=== PATIENT | female | born 1970 | race African-American/Black ===

== ENCOUNTER → 2018-06-14 | Day surgery (SDC) | payer MEDICARE ==
[2018-06-11 09:49] LABS: BASOPHILS # (AUTO) 0.1 (0.0-0.1); BASOPHILS % 0.7 % (0.0-1.0); EOSINOPHILS # (AUTO) 0.4 (0.0-0.4); EOSINOPHILS % 4.9 % (0.0-6.0); HEMATOCRIT 43.7 % (34.2-44.1); HEMOGLOBIN 13.7 g/dL (12.0-16.0); LYMPHOCYTES # (AUTO) 2.6 (1.0-3.2); LYMPHOCYTES % 36.3 % (18.0-39.1); MEAN CORPUSCULAR HEMOGLOBIN 28.7 pg (28-32); MEAN CORPUSCULAR HGB CONC 31.4 g/dL (31-35); MEAN CORPUSCULAR VOLUME 91.4 fL (81-99); MONOCYTES # (AUTO) 0.5 (0.2-0.8); MONOCYTES % 6.5 % (4.4-11.3); NEUTROPHILS # (AUTO) 3.7 (2.1-6.9); NEUTROPHILS % 51.5 % (38.7-80.0); PLATELET COUNT 311 x10e3/uL (140-360); RED BLOOD COUNT 4.78 x10e6/uL (3.6-5.1); RED CELL DISTRIBUTION WIDTH 12.5 % (11.7-14.4)
[2018-06-11 10:02] LABS: BLOOD UREA NITROGEN 11 mg/dL (7-26); BUN/CREATININE RATIO 14 (6-25); CALCIUM 9.9 mg/dL (8.4-10.2); CARBON DIOXIDE 26 mmol/L (22-29); CHLORIDE 98 mmol/L (98-107); CREATININE, SERUM 0.79 mg/dL (0.57-1.11); EST GLOMERULAR FILTRATION RATE > 60 ML/MIN (60-); GLUCOSE 95 mg/dL (74-118); SODIUM 133 mmol/L (136-145)
[~2018-06-14] MED LIST: BACLOFEN10 MG PO; BENTYL10 MG PO; BENTYL20 MG PO; BUPIVACAINE 0.25%/EPI 30ML SDV INJ ONE; BUSPAR PO; BUTALB-ACETAMI1 EACH PO; CLONAZEPAM1 MG PO; COLACE100 MG PO; DEXAMETHASONE SOD PHOS INJ 4 MG/ML VIAL ONE; DOXYCYCLINE HY100 MG PO; DULCOLAX10 MG PO; EPHEDRINE SULFATE INJ 50 MG/10 ML SYR ONE; FENTANYL CITRATE/PF 100MCG/2 ML INJ ONE; FLUCONAZOLE100 MG PO; GABAPENTIN300 MG PO; HALDOL PO; KLONOPIN1 MG PO; LAMICTAL150 MG PO; LAMOTRIGINE100 MG PO; LIDOCAINE HCL 2% LOCAL INJ 5 ML SDV VIAL INJ ONE; LINZESS PO; LIPITOR40 MG PO; METOCLOPRAMIDE HCL 10 MG/2ML VIAL ONE; MIDAZOLAM HCL 2 MG/2 ML VIAL ONE; MIRALAX17 GM PO; OLANZAPINE5 MG PO; ONDANSETRON HCL INJ 2MG/ML 2ML 2 MG/ML VIAL ONE; PANTOPRAZOLE SO40 MG PO; PROPOFOL IV EMULSION 10 MG/ML 20 ML VIAL ONE; PROTONIX40 MG/ML PO; PROZAC20 MG PO; REGLAN10 MG PO; SEVOFLURANE INHAL SOLN 250 ML PEN BTL ONE; SIMVASTATIN40 MG PO; TORSEMIDE10 MG PO; TRAZODONE HCL50 MG PO
--- OUTSIDE RECORDS SUMMARY | 2018-06-14 09:13 | XMS REPORT | Summary of Care ---
Author Organization Unknown Address Unknown Phone Unavailable Encounter Dates Location Diagnoses Discharge Providers Disposition 05/06/2013 [facility] Q - 06/04/2013 Reason for Visit CERVICAL SPONDYLOSIS Problem List No data available for this section Allergies, Adverse Reactions, Alerts Status Substance Reaction Severity Active penicillin Medications No data available for this section Medications Administered During Your Visit No data available for this section Immunizations No data available for this section
--- OUTSIDE RECORDS SUMMARY | 2018-06-14 09:13 | XMS REPORT ---
[facility] Address Unknown Phone Unavailable Care Team Providers Care Styrene Dehydration Reactor Operator Name Role Phone Unavailable Unavailable Payers Payer Name Policy Type Policy Number Effective Date Expiration Date Problems This patient has no known problems. Allergies, Adverse Reactions, Alerts Allergy Name Allergy Type Status Severity Reaction(s) Onset Date Inactive Date Treating Clinician Comments Penicillins DA Active U 2017-12-24 00:00:00 ziprasidone HCl DA Active SV 2010-09-16 00:00:00 ziprasidone mesylate DA Active SV 2010-09-16 00:00:00 Penicillins DA Active U 2010-09-15 00:00:00 Medications This patient has no known medications.
--- OUTSIDE RECORDS SUMMARY | 2018-06-14 09:13 | XMS REPORT | Clinical Summary ---
Author Author [facility] Address Unknown Phone Unavailable Care Team Providers Care Scrap Hoist Operator Name Role Phone Nithin Romo MD PCP Allergies Comments Active Allergy Reactions Severity Noted Date PSYCHOTIC Ziprasidone Hcl 02/01/2017 Penicillins Hives, 12/06/2016 Swelling Medications End Date Status Medication Sig Dispensed Refills Start Date Active dicyclomine (BENTYL) 20 Take 20 mg by 0 mg tablet mouth 4 (four) times a day. Active haloperidol (HALDOL) 10 Take 5 mg by 0 MG tablet mouth 4 (four) times a day. Active atorvastatin (LIPITOR) 40 Take 40 mg by 0 MG tablet mouth daily. Active linaclotide (LINZESS) 290 Take 290 mcg 0 mcg capsule by mouth daily before breakfast. Active clonAZEPAM (KlonoPIN) 1 Take 1 mg by 0 MG tablet mouth 2 (two) times a day as needed for seizures. Active lamoTRIgine (LaMICtal) Take 150 mg 0 150 MG tablet by mouth daily. Active pantoprazole (PROTONIX) Take 40 mg by 0 40 MG EC tablet mouth daily. Active FLUoxetine (PROzac) 20 MG Take 20 mg by 0 capsule mouth daily. Active promethazine (PHENERGAN) Take 25 mg by 0 25 MG tablet mouth every 6 (six) hours as needed for nausea or vomiting. Active multivitamin (THERAGRAN) Take 1 tablet 0 tablet by mouth daily. Active busPIRone (BUSPAR) 5 MG Take 5 mg by 0 tablet mouth 3 (three) times a day. Active torsemide (DEMADEX) 10 MG Take 10 mg by 0 tablet mouth daily. Active albuterol (PROAIR HFA) 90 Inhale 2 0 mcg/actuation inhaler puffs every 6 (six) hours as needed for wheezing. Active azelastine (ASTELIN) 137 1 spray into 0 mcg (0.1 %) nasal spray each nostril 2 (two) times a day. Use in each nostril as directed Active levocetirizine (XYZAL) 5 Take 5 mg by 0 01/03/201 MG tablet mouth every 7 evening. Active Problems Not on file Family History Medical History Relation Name Comments Diabetes Father Hypertension Father Arthritis Mother Relation Name Status Comments Father Mother Social History Date Tobacco Use Types Packs/Day Years Used Never Smoker Smokeless Tobacco: Never Used Alcohol Use Drinks/Week oz/Week Comments No Sex Assigned at Date Recorded Not on file Industry Job Start Date Occupation Not on file Not on file Not on file Travel End Travel History Travel Start No recent travel history available. Last Filed Vital Signs Not on file Plan of Treatment Health Maintenance Due Date Last Done Comments CERVICAL CANCER SCREENING 05/22/1992 INFLUENZA VACCINE 10/17/2017 Implants Device Identifier Shelf Expiration Date Model / Serial / Lot Implanted Type Area Manufactur er 07/19/2018 [id number] 35 / [id number] / [id number] Hde#[id number] Lead Enterra Neurosurgi N/A: N/A [employer] Neurostimulator Gastric - varun [id number] - [id number] Implants Implanted: Qty: 1 on 02/07/2017 by Chaitanya Willson MD 07/28/2018 [id number] 35 / [id number] / [id number] Hde#[id number] Lead Enterra Neurosurgi N/A: N/A [employer] Neurostimulator Gastric - varun [id number] - [id number] Implants Implanted: Qty: 1 on 02/07/2017 by Chaitanya Willson MD 01/30/2018 [id number] / [id number] / [id number] Hde# [id number] Neurostimulator Neurosurgi N/A: N/A [employer] Enterra Ii Therapy System - varun NEUROMODUL [id number] - [id number] Implants ATION Implanted: Qty: 1 on 02/07/2017 by Chaitanya Willson MD Results Not on fileafter 06/13/2017 Insurance Payer Benefit Subscriber ID Type Phone Address Plan / Group [employer] TEX[employer] xxxxxxxxx O [facility] Advance Directives Patient has advance care planning documents on file. For more information, frankie yancey contact: Osmany Ross [address] [place] [address]
--- OUTSIDE RECORDS SUMMARY | 2018-06-14 09:13 | XMS REPORT | Summary of Care ---
Author Organization Unknown Address Unknown Phone Unavailable Encounter [facility]) [id number] Date(s): 12/29/13 - 12/29/13 [facility] [id number] Discharge Diagnosis: Acute chest wall pain Discharge Disposition: Home Physician Attending: Shashank Savage MD Reason for Visit CHEST PAIN Vital Signs 1 2 3 Most recent to oldest [Reference Range]: 162.56 cm (12/29/13 2:56 PM) Height 98.2 DegF (12/29/13 10:06 PM) 98.7 DegF (12/29/13 4:30 PM) 98.4 DegF (12/29/13 3:31 PM) Temperature Oral [96.4-99.1 DegF] 94 mmHg (12/29/13 10:06 PM) 113 mmHg (12/29/13 9:00 PM) 113 mmHg (12/29/13 7:00 PM) Systolic Blood Pressure [90-140 mmHg] 66 mmHg (12/29/13 10:06 PM) 80 mmHg (12/29/13 9:00 PM) 80 mmHg (12/29/13 7:00 PM) Diastolic Blood Pressure [60-90 mmHg] 24 BRMIN *HI* (12/29/13 10:06 PM) 12 BRMIN *LOW* (12/29/13 9:00 PM) 14 BRMIN (12/29/13 7:00 PM) Respiratory Rate [14-20 BRMIN] 63 bpm (12/29/13 10:06 PM) 63 bpm (12/29/13 9:00 PM) 62 bpm (12/29/13 7:00 PM) Peripheral Pulse Rate [60-100 bpm] 88.182 kg (12/29/13 2:56 PM) Weight 33.37 m2 (12/29/13 2:56 PM) Body Mass Index Problem List Condition Effective Dates Status Health Status Informant Anxiety(Confirmed) Resolved Depression(Confirmed Resolved ) Allergies, Adverse Reactions, Alerts Substance Reaction Severity Status penicillin Active Medications Flexeril 10 mg, 1 tab, Route: PO, Drug form: TAB, ONCE, Dosing Weight 88.182, kg, Priorit y: STAT, Start date: 12/29/13 20:21:00, Stop date: 12/29/13 20:21:00 Notes: (Same As: Flexeril) Start Date: 12/29/13 Stop Date: 12/29/13 Status: Completed ketorolac 30 mg, Route: IVP, Drug form: INJ, ONCE, Dosing Weight 88.182, kg, Priority: STA T, Start date: 12/29/13 18:25:00, Stop date: 12/29/13 18:25:00 Start Date: 12/29/13 Stop Date: 12/29/13 Status: Completed Valium 5 mg, Route: PO, ONCE, Dosing Weight 88.182, kg, Priority: STAT, Start date: 21:16:00, Stop date: 12/29/13 21:16:00 Start Date: 12/29/13 Stop Date: 12/29/13 Status: Completed Valium 5 mg oral tablet 5 mg, PO, Q8-12H, Anxiety / dizziness, # 20 tab, 0 Refill(s) Start Date: 12/29/13 Stop Date: 01/05/14 Status: Ordered Results ELECTROLYTES Most recent to 1 2 oldest [Reference Range]: Sodium Lvl [135-145 136 mEq/L mEq/L] (12/29/13 3:32 PM) Potassium Lvl 4.0 mEq/L [3.5-5.1 mEq/L] (12/29/13 3:32 PM) Chloride Lvl [95-109 106 mEq/L mEq/L] (12/29/13 3:32 PM) CO2 [24-32 mEq/L] 20 mEq/L *LOW* (12/29/13 3:32 PM) AGAP [10.0-20.0 14.0 mEq/L mEq/L] (12/29/13 3:32 PM) CHEM PANEL Most recent to 1 2 oldest [Reference Range]: Creatinine Lvl 0.8 mg/dL [0.5-1.4 mg/dL] (12/29/13 3:32 PM) eGFR 105 mL/min/1.73m2 1 *NA* (12/29/13 3:32 PM) BUN [7-22 mg/dL] 17 mg/dL (12/29/13 3:32 PM) B/C Ratio [6-25] 21 (12/29/13 3:32 PM) Glucose Lvl [70-99 91 mg/dL 2 mg/dL] (12/29/13 3:32 PM) Total Protein 7.8 g/dL [6.4-8.4 g/dL] (12/29/13 3:32 PM) Albumin Lvl [3.5-5.0 3.5 g/dL g/dL] (12/29/13 3:32 PM) Globulin [2.0-4.0 4.3 g/dL g/dL] *HI* (12/29/13 3:32 PM) A/G Ratio [0.7-1.6] 0.8 (12/29/13 3:32 PM) Calcium Lvl 8.5 mg/dL [8.5-10.5 mg/dL] (12/29/13 3:32 PM) ALT [0-65 unit/L] 18 unit/L (12/29/13 3:32 PM) AST [0-37 unit/L] 17 unit/L (12/29/13 3:32 PM) Alk Phos [39-136 61 unit/L unit/L] (12/29/13 3:32 PM) Bili Total [0.2-1.3 0.2 mg/dL mg/dL] (12/29/13 3:32 PM) 1Result Comment: The eGFR is calculated using the CKD-EPI formula. In most young, healthy individuals the eGFR will be >90 mL/min/1.73m2. The eGFR declines with age. An eGFR of 60-89 may be normal in some populations, particularly the elderly, for whom the CKD-EPI formula has not been extensively validated. Use of the eGFR is not recommended in the following populations: Individuals with unstable creatinine concentrations, including patients and those with serious co-morbid conditions. Patients with extremes in muscle mass or diet. The data above are obtained from the National Kidney Disease Education Program ( NKDEP) which additionally recommends that when the eGFR is used in patients with extremes of body mass index for purposes of drug dosing, the eGFR should be mul tiplied by the estimated BMI. 2Interpretive Data: Adult reference range values reflect the clinical guidelines of the [employer]. CARDIAC ENZYMES Most recent to 1 2 oldest [Reference Range]: Total CK [12-191 65 unit/L 85 unit/L unit/L] (12/29/13 7:09 PM) (12/29/13 3:32 PM) CK MB [0.5-3.6 0.7 ng/mL ng/mL] (12/29/13 3:32 PM) CK MB Index 0.8 [0.0-2.5] (12/29/13 3:32 PM) Troponin-I <0.02 ng/mL <0.02 ng/mL [0.00-0.40 ng/mL] (12/29/13 7:09 PM) (12/29/13 3:32 PM) URINE CHEM Most recent to 1 2 oldest [Reference Range]: U Preg [Negative] Negative (12/29/13 6:02 PM) HEMATOLOGY Most recent to 1 2 oldest [Reference Range]: WBC [3.7-10.4 K/CMM] 11.5 K/CMM *HI* (12/29/13 3:32 PM) RBC [4.20-5.40 4.52 M/CMM M/CMM] (12/29/13 3:32 PM) Hgb [12.0-16.0 g/dL] 12.9 g/dL (12/29/13 3:32 PM) Hct [36.0-48.0 %] 40.1 % (12/29/13 3:32 PM) MCV [80.0-98.0 fL] 88.5 fL (12/29/13 3:32 PM) MCH [27.0-31.0 pg] 28.6 pg (12/29/13 3:32 PM) MCHC [32.0-36.0 32.3 g/dL g/dL] (12/29/13 3:32 PM) RDW [11.5-14.5 %] 13.2 % (12/29/13 3:32 PM) Platelet [133-450 301 K/CMM K/CMM] (12/29/13 3:32 PM) MPV [7.4-10.4 fL] 8.7 fL (12/29/13 3:32 PM) Segs [45.0-75.0 %] 39.3 % *LOW* (12/29/13 3:32 PM) Lymphocytes 50.0 % [20.0-40.0 %] *HI* (12/29/13 3:32 PM) Monocytes [2.0-12.0 5.6 % %] (12/29/13 3:32 PM) Eosinophils [0.0-4.0 3.3 % %] (12/29/13 3:32 PM) Basophils [0.0-1.0 1.8 % %] *HI* (12/29/13 3:32 PM) Segs-Bands # 4.5 K/CMM [1.5-8.1 K/CMM] (12/29/13 3:32 PM) Lymphocytes # 5.8 K/CMM [1.0-5.5 K/CMM] *HI* (12/29/13 3:32 PM) Monocytes # [0.0-0.8 0.6 K/CMM K/CMM] (12/29/13 3:32 PM) Eosinophils # 0.4 K/CMM [0.0-0.5 K/CMM] (12/29/13 3:32 PM) Basophils # [0.0-0.2 0.2 K/CMM K/CMM] (12/29/13 3:32 PM) Medications Administered During Your Visit No data available for this section Immunizations No data available for this section Procedures Procedure Type Body Site Date of Procedure Related Diagnosis Knee joint operation Social History Social History Type Response Smoking Status Never smoker, Exposure to Tobacco Smoke None, Cigarette Smoking Last 365 Days No, Reg Smoking Cessation Counseling No
--- OUTSIDE RECORDS SUMMARY | 2018-06-14 09:13 | XMS REPORT | Continuity of Care Document ---
Author Author Armin milena [facility] Interface Address Unknown Phone Unavailable Problems Problem Status Onset Date Classification Date Reported Comments Source Discharge Diagnosis: Female pelvic inflammatory disease, unspecified 12/28/2014 12/31/2014 [facility] LOWER ABD PAIN Active 12/27/2014 [facility] Discharge Diagnosis: Acute chest wall pain 12/29/2013 01/01/2014 [facility] CHEST PAIN Active 12/29/2013 [facility] Anxiety Resolved Problem 12/31/2014 [facility] Depression Resolved Problem 12/31/2014 [facility] CERVICAL SPONDYLOSIS Active [facility] Medications Medication Details Route Status Patient Instructions Ordering Provider Order Date Source baclofen 10 mg oral tablet 10 mg=1 tab, PO, TID, PRN Spasms, # 90 tab, 0 Refill(s) Active 12/28/2014 [facility] naproxen 500 mg oral enteric coated delayed-release tablet 500 mg=1 tab, PO, BID, PRN Pain, # 30 tab, 0 Refill(s) Active 12/28/2014 [facility] doxycycline hyclate 100 mg oral tablet 100 mg=1 tab, PO, Q12H, X 10 day, # 20 tab, 0 Refill(s) Active 12/28/2014 [facility] Flagyl 2 gm, Route: PO, ONCE, Dosing Weight 94.091, kg, Priority: STAT, Start date: 12/28/14 5:07:00, Stop date: 12/28/14 5:07:00 Inactive 12/28/2014 [facility] Azithromycin 1,000 mg, Route: PO, Drug form: PCKT, ONCE, Dosing Weight 94.091, kg, Start date: 12/28/14 5:07:00, Stop date: 12/28/14 5:07:00 Inactive 12/28/2014 [facility] Ceftriaxone 250 mg, Route: IM, Drug form: PDR/INJ, ONCE, Dosing Weight 94.091, kg, Priority: STAT, Start date: 12/28/14 5:07:00, Stop date: 12/28/14 5:07:00 Inactive 12/28/2014 [facility] Ketorolac 30 mg, Route: IVP, Drug form: INJ, ONCE, Dosing Weight 94.091, kg, Priority: STAT, Start date: 12/28/14 3:51:00, Stop date: 12/28/14 3:51:00 Inactive 12/28/2014 [facility] Acetaminophen 325 MG / Hydrocodone Bitartrate 5 MG Oral Tablet [[place] 5/325] 2 tab, Route: PO, Drug Form: TAB, Dosing Weight 94.091, kg, ONCE, STAT, Start date: 12/28/14 3:51:00, Stop date: 12/28/14 3:51:00 Inactive 12/28/2014 [facility] Diazepam 5 MG Oral Tablet [Valium] 5 mg, PO, Q8-12H, Anxiety / dizziness, # 20 tab, 0 Refill(s) Active 12/30/2013 [facility] Valium 5 mg, Route: PO, ONCE, Dosing Weight 88.182, kg, Priority: STAT, Start date: 12/29/13 21:16:00, Stop date: 12/29/13 21:16:00 Inactive 12/30/2013 [facility] Flexeril 10 mg, 1 tab, Route: PO, Drug form: TAB, ONCE, Dosing Weight 88.182, kg, Priority: STAT, Start date: 12/29/13 20:21:00, Stop date: 12/29/13 20:21:00Notes: (Same As: Flexeril) Inactive 12/30/2013 [facility] Ketorolac 30 mg, Route: IVP, Drug form: INJ, ONCE, Dosing Weight 88.182, kg, Priority: STAT, Start date: 12/29/13 18:25:00, Stop date: 12/29/13 18:25:00 Inactive 12/29/2013 [facility] Allergies, Adverse Reactions, Alerts Substance Category Reaction Severity Reaction type Status Date Reported Comments Source penicillin Assertion Drug allergy Active [facility] Immunizations Immunization Date Given Site Status Last Updated Comments Source Results Order Name Results Value Reference Range Date Interpretation Comments Source MOLECULAR DIAGNOSTIC Source APTIMA Endocervix *NA* (12/28/14 5:45 AM) 12/28/2014 [facility] MOLECULAR DIAGNOSTIC N gonorrhea by Amp Det (APTIMA) Negative *NA* (12/28/14 5:45 AM) Negative 12/28/2014 [facility] MOLECULAR DIAGNOSTIC Source APTIMA Endocervix *NA* (12/28/14 5:45 AM) 12/28/2014 [facility] MOLECULAR DIAGNOSTIC C trachomatis by Amp Det (APTIMA) Negative *NA* (12/28/14 5:45 AM) Negative 12/28/2014 [facility] CHEM PANEL Globulin 4.1 g/dL 2.0 - 4.0 12/28/2014 [facility] CHEM PANEL B/C Ratio 16 6 - 25 12/28/2014 [facility] CHEM PANEL AGAP 7.9 meq/L 10.0 - 20.0 12/28/2014 [facility] CHEM PANEL A/G Ratio 0.9 0.7 - 1.6 12/28/2014 [facility] CHEM PANEL Chloride Lvl 104 meq/L 95 - 109 12/28/2014 [facility] CHEM PANEL Calcium Lvl 8.5 mg/dL 8.5 - 10.5 12/28/2014 [facility] CHEM PANEL Potassium Lvl 3.9 meq/L 3.5 - 5.1 12/28/2014 [facility] CHEM PANEL eGFR 80 mL/min/1.73m2 12/28/2014 Result Comment: The eGFR is calculated using the [...] from the National Kidney Disease Education Program (NKDEP) which additionally recommends that when the eGFR is used in patients with extremes of body mass index for purposes of drug dosing, the eGFR should be multiplied by the estimated BMI. [facility] CHEM PANEL Sodium Lvl 135 meq/L 135 - 145 12/28/2014 [facility] CHEM PANEL Creatinine Lvl 1.0 mg/dL 0.5 - 1.4 12/28/2014 [facility] CHEM PANEL Glucose Lvl 102 mg/dL 70 - 99 12/28/2014 [facility] CHEM PANEL Bili Total 0.3 mg/dL 0.2 - 1.3 12/28/2014 [facility] CHEM PANEL Alk Phos 61 unit/L 39 - 136 12/28/2014 [facility] CHEM PANEL Albumin Lvl 3.5 g/dL 3.5 - 5.0 12/28/2014 [facility] CHEM PANEL Total Protein 7.6 g/dL 6.4 - 8.4 12/28/2014 [facility] CHEM PANEL CO2 27 meq/L 24 - 32 12/28/2014 [facility] CHEM PANEL BUN 16 mg/dL 7 - 22 12/28/2014 [facility] CHEM PANEL AST 18 unit/L 0 - 37 12/28/2014 [facility] CHEM PANEL ALT 28 unit/L 0 - 65 12/28/2014 [facility] HEMATOLOGY RBC 4.78 M/CMM 4.20 - 5.40 12/28/2014 [facility] HEMATOLOGY MCHC 32.0 g/dL 32.0 - 36.0 12/28/2014 [facility] HEMATOLOGY Hct 41.3 % 36.0 - 48.0 12/28/2014 [facility] MCH 27.7 pg 27.0 - 31.0 12/28/2014 [facility] HEMATOLOGY RDW 13.0 % 11.5 - 14.5 12/28/2014 [facility] HEMATOLOGY MCV 86.5 fL 80.0 - 98.0 12/28/2014 [facility] HEMATOLOGY Platelet 266 K/CMM 133 - 450 12/28/2014 [facility] HEMATOLOGY WBC 7.7 K/CMM 3.7 - 10.4 12/28/2014 [facility] HEMATOLOGY Hgb 13.2 g/dL 12.0 - 16.0 12/28/2014 [facility] HEMATOLOGY MPV 8.3 fL 7.4 - 10.4 12/28/2014 [facility] HEMATOLOGY Basophils # 0.1 K/CMM 0.0 - 0.2 12/28/2014 [facility] HEMATOLOGY Lymphocytes # 3.1 K/CMM 1.0 - 5.5 12/28/2014 [facility] HEMATOLOGY Segs-Bands # 3.8 K/CMM 1.5 - 8.1 12/28/2014 [facility] HEMATOLOGY Eosinophils # 0.3 K/CMM 0.0 - 0.5 12/28/2014 [facility] HEMATOLOGY Monocytes # 0.5 K/CMM 0.0 - 0.8 12/28/2014 [facility] HEMATOLOGY Eosinophils 3.3 % 0.0 - 4.0 12/28/2014 [facility] HEMATOLOGY Basophils 1.5 % 0.0 - 1.0 12/28/2014 [facility] HEMATOLOGY Monocytes 6.1 % 2.0 - 12.0 12/28/2014 [facility] HEMATOLOGY Segs 49.0 % 45.0 - 75.0 12/28/2014 [facility] HEMATOLOGY Lymphocytes 40.1 % 20.0 - 40.0 12/28/2014 [facility] URINE AND STOOL UA Color Ltyellow 12/28/2014 [facility] URINE AND STOOL UA Urobilinogen <=1.0 mg/dL 0.1 - 1.0 12/28/2014 [facility] URINE AND STOOL UA Turbidity Marked *ABN* (12/28/14 2:06 AM) Clear 12/28/2014 [facility] URINE AND STOOL UA pH 5.0 5.0 - 8.0 12/28/2014 [facility] URINE AND STOOL UA Spec Grav 1.015 <=1.030 12/28/2014 [facility] URINE AND STOOL UA Blood Negative (12/28/14 2:06 AM) Negative 12/28/2014 [facility] URINE AND STOOL UA Nitrite Negative (12/28/14 2:06 AM) Negative 12/28/2014 [facility] URINE AND STOOL UA Bili Negative *NA* (12/28/14 2:06 AM) Negative 12/28/2014 [facility] URINE AND STOOL UA Glucose Negative mg/dL Negative mg/dL 12/28/2014 [facility] URINE AND STOOL UA Ketones Negative mg/dL Negative mg/dL 12/28/2014 [facility] URINE AND STOOL UA Protein Negative mg/dL Negative mg/dL 12/28/2014 [facility] URINE AND STOOL UA Bacteria Moderate /HPF None Seen /HPF 12/28/2014 [facility] URINE AND STOOL UA RBC 3 /HPF 0 - 2 12/28/2014 [facility] URINE AND STOOL UA Leuk Est Negative (12/28/14 2:06 AM) Negative 12/28/2014 [facility] URINE AND STOOL UA WBC 10 /HPF 0 - 5 12/28/2014 [facility] URINE AND STOOL UA Sq Epi Occasional /LPF Few /LPF 12/28/2014 [facility] URINE CHEM U Preg Negative (12/28/14 2:06 AM) Negative 12/28/2014 [facility] CARDIAC ENZYMES Total CK 65 unit/L 12 - 191 12/30/2013 [facility] CARDIAC ENZYMES Troponin-I null 0.00 - 0.40 12/30/2013 [facility] URINE CHEM U Preg Negative (12/29/13 6:02 PM) Negative 12/29/2013 [facility] CARDIAC ENZYMES Troponin-I null 0.00 - 0.40 12/29/2013 [facility] CARDIAC ENZYMES CK MB 0.7 ng/mL 0.5 - 3.6 12/29/2013 [facility] CARDIAC ENZYMES CK MB Index 0.8 0.0 - 2.5 12/29/2013 [facility] CARDIAC ENZYMES Total CK 85 unit/L 12 - 191 12/29/2013 [facility] CHEM PANEL Globulin 4.3 g/dL 2.0 - 4.0 12/29/2013 [facility] CHEM PANEL B/C Ratio 21 6 - 25 12/29/2013 [facility] CHEM PANEL AGAP 14.0 meq/L 10.0 - 20.0 12/29/2013 [facility] CHEM PANEL A/G Ratio 0.8 0.7 - 1.6 12/29/2013 [facility] CHEM PANEL eGFR 105 mL/min/1.73m2 12/29/2013 1Result Comment: The eGFR is calculated using [...] from the National Kidney Disease Education Program (NKDEP) which additionally recommends that when the eGFR is used in patients with extremes of body mass index for purposes of drug dosing, the eGFR should be multiplied by the estimated BMI. [facility] CHEM PANEL Potassium Lvl 4.0 meq/L 3.5 - 5.1 12/29/2013 [facility] CHEM PANEL Chloride Lvl 106 meq/L 95 - 109 12/29/2013 [facility] CHEM PANEL BUN 17 mg/dL 7 - 22 12/29/2013 [facility] CHEM PANEL Glucose Lvl 91 mg/dL 70 - 99 12/29/2013 2Interpretive Data: Adult reference range values reflect the clinical guidelines of the [place] [employer]. [facility] CHEM PANEL Total Protein 7.8 g/dL 6.4 - 8.4 12/29/2013 [facility] CHEM PANEL CO2 20 meq/L 24 - 32 12/29/2013 [facility] CHEM PANEL Sodium Lvl 136 meq/L 135 - 145 12/29/2013 [facility] CHEM PANEL Creatinine Lvl 0.8 mg/dL 0.5 - 1.4 12/29/2013 [facility] CHEM PANEL Calcium Lvl 8.5 mg/dL 8.5 - 10.5 12/29/2013 [facility] CHEM PANEL Bili Total 0.2 mg/dL 0.2 - 1.3 12/29/2013 [facility] CHEM PANEL Alk Phos 61 unit/L 39 - 136 12/29/2013 [facility] CHEM PANEL AST 17 unit/L 0 - 37 12/29/2013 [facility] CHEM PANEL Albumin Lvl 3.5 g/dL 3.5 - 5.0 12/29/2013 [facility] CHEM PANEL ALT 18 unit/L 0 - 65 12/29/2013 [facility] HEMATOLOGY Basophils 1.8 % 0.0 - 1.0 12/29/2013 [facility] HEMATOLOGY Eosinophils 3.3 % 0.0 - 4.0 12/29/2013 [facility] HEMATOLOGY Segs-Bands # 4.5 K/CMM 1.5 - 8.1 12/29/2013 [facility] HEMATOLOGY Lymphocytes # 5.8 K/CMM 1.0 - 5.5 12/29/2013 [facility] HEMATOLOGY Basophils # 0.2 K/CMM 0.0 - 0.2 12/29/2013 [facility] HEMATOLOGY Monocytes # 0.6 K/CMM 0.0 - 0.8 12/29/2013 [facility] HEMATOLOGY Eosinophils # 0.4 K/CMM 0.0 - 0.5 12/29/2013 [facility] HEMATOLOGY Segs 39.3 % 45.0 - 75.0 12/29/2013 [facility] HEMATOLOGY Monocytes 5.6 % 2.0 - 12.0 12/29/2013 [facility] HEMATOLOGY Lymphocytes 50.0 % 20.0 - 40.0 12/29/2013 [facility] HEMATOLOGY MPV 8.7 fL 7.4 - 10.4 12/29/2013 [facility] HEMATOLOGY RDW 13.2 % 11.5 - 14.5 12/29/2013 [facility] HEMATOLOGY Platelet 301 K/CMM 133 - 450 12/29/2013 [facility] HEMATOLOGY MCH 28.6 pg 27.0 - 31.0 12/29/2013 [facility] HEMATOLOGY MCHC 32.3 g/dL 32.0 - 36.0 12/29/2013 [facility] HEMATOLOGY RBC 4.52 M/CMM 4.20 - 5.40 12/29/2013 [facility] HEMATOLOGY Hgb 12.9 g/dL 12.0 - 16.0 12/29/2013 [facility] HEMATOLOGY Hct 40.1 % 36.0 - 48.0 12/29/2013 [facility] HEMATOLOGY MCV 88.5 fL 80.0 - 98.0 12/29/2013 [facility] HEMATOLOGY WBC 11.5 K/CMM 3.7 - 10.4 12/29/2013 [facility] Chest 1view Chest 1view Examination: Chest x-ray, single view History: Chest pain Comparison: None. Findings: The lungs are clear and without focal consolidation. The cardiomediastinal silhouette is within normal limits. No pleural effusion or pneumothorax is seen. The osseous structures are without focal abnormality. IMPRESSION: No acute cardiopulmonary disease. SL: 16 12/29/2013 - - Read by: Yasmani Montanez MD Dictated Date/time: 12/29/13 15:52 Electronically Signed by: Yasmani Montanez MD 12/29/13 15:52 FINAL REPORT [facility] Vital Signs Vital Sign Value Date Comments Source Temperature Oral (F) 98.5 F 12/28/2014 [facility] Systolic (mm Hg) 105 12/28/2014 [facility] Diastolic (mm Hg) 72 12/28/2014 [facility] Heart Rate 68 12/28/2014 [facility] Respitory Rate 14 12/28/2014 [facility] Heart Rate 64 12/28/2014 [facility] Temperature Oral (F) 98.3 F 12/28/2014 [facility] Systolic (mm Hg) 112 12/28/2014 [facility] Diastolic (mm Hg) 79 12/28/2014 [facility] Respitory Rate 16 12/28/2014 [facility] Systolic (mm Hg) 109 12/28/2014 [facility] Diastolic (mm Hg) 74 12/28/2014 [facility] Respitory Rate 14 12/28/2014 [facility] Heart Rate 62 12/28/2014 [facility] Weight 94.091 12/28/2014 [facility] BMI Calculated 35.61 12/28/2014 [facility] Height 162.56 cm 12/28/2014 [facility] Temperature Oral (F) 98.4 F 12/28/2014 [facility] Temperature Oral (F) 98.2 F 12/30/2013 [facility] Heart Rate 63 12/30/2013 [facility] Diastolic (mm Hg) 66 12/30/2013 [facility] Systolic (mm Hg) 94 12/30/2013 [facility] Respitory Rate 24 12/30/2013 [facility] Heart Rate 63 12/30/2013 [facility] Diastolic (mm Hg) 80 12/30/2013 [facility] Systolic (mm Hg) 113 12/30/2013 [facility] Respitory Rate 12 12/30/2013 [facility] Diastolic (mm Hg) 80 12/30/2013 [facility] Heart Rate 62 12/30/2013 [facility] Respitory Rate 14 12/30/2013 [facility] Systolic (mm Hg) 113 12/30/2013 [facility] Temperature Oral (F) 98.7 F 12/29/2013 [facility] Temperature Oral (F) 98.4 F 12/29/2013 [facility] BMI Calculated 33.37 12/29/2013 [facility] Height 162.56 cm 12/29/2013 [facility] Weight 88.182 12/29/2013 [facility] Encounters Location Location Details Encounter Type Encounter Number Reason For Visit Attending Provider ADM Date DC Date Status Source [id number] CERVICAL SPONDYLOSIS [facility] 05/06/[address] [facility] OP Therapy Patients [id number] [facility] 05/06/2013 06/05/2013 [facility] [id number] Shashank MaresSavgae 12/29/2013 12/30/2013 [facility] [id number] Nadim Voodoo 12/28/2014 12/28/2014 [facility] Procedures Procedure Code Date Perfomer Comments Source Knee joint operation [id number] [facility] Partial hysterectomy [id number] [facility]
--- OUTSIDE RECORDS SUMMARY | 2018-06-14 09:13 | XMS REPORT | Summary of Care ---
Author Author [facility] Organization [facility] Address Unknown Phone Unavailable Encounter CARLA Cordero(ANTONIETA) [id number] Date(s): 12/28/14 - 12/28/14 [facility] [address] [place] [address]- Discharge Diagnosis: Female pelvic inflammatory disease, unspecified Discharge Disposition: Home Attending Physician: Hellen Espino MD Vital Signs 1 2 3 Most recent to oldest [Reference Range]: 162.56 cm (12/28/14 12:22 AM) Height 1 2 3 Most recent to oldest [Reference Range]: 98.5 DegF (12/28/14 5:12 AM) 98.3 DegF (12/28/14 3:44 AM) 98.4 DegF (12/28/14 12:22 AM) Temperature Oral [96.4-99.1 DegF] 1 2 3 Most recent to oldest [Reference Range]: 105/72 mmHg (12/28/14 5:12 AM) 112/79 mmHg (12/28/14 3:44 AM) 109/74 mmHg (12/28/14 1:34 AM) Blood Pressure [90-140/60-90 mmHg] 1 2 3 Most recent to oldest [Reference Range]: 14 BRMIN (12/28/14 5:12 AM) 16 BRMIN (12/28/14 3:44 AM) 14 BRMIN (12/28/14 1:34 AM) Respiratory Rate [14-20 BRMIN] 1 2 3 Most recent to oldest [Reference Range]: 68 bpm (12/28/14 5:12 AM) 64 bpm (12/28/14 3:44 AM) 62 bpm (12/28/14 1:34 AM) Peripheral Pulse Rate [60-100 bpm] 1 2 3 Most recent to oldest [Reference Range]: 94.091 kg (12/28/14 12:22 AM) Weight 1 2 3 Most recent to oldest [Reference Range]: 35.61 m2 (12/28/14 12:22 AM) Body Mass Index Problem List Condition Effective Dates Status Health Status Informant Anxiety(Confirmed) Resolved Depression(Confirmed Resolved ) Allergies, Adverse Reactions, Alerts Substance Reaction Severity Status penicillin Active Medications azithromycin 1,000 mg, Route: PO, Drug form: PCKT, ONCE, Dosing Weight 94.091, kg, Start date : 12/28/14 5:07:00, Stop date: 12/28/14 5:07:00 Start Date: 12/28/14 Stop Date: 12/28/14 Status: Completed baclofen 10 mg oral tablet 10 mg=1 tab, PO, TID, PRN Spasms, # 90 tab, 0 Refill(s) Start Date: 12/28/14 Status: Ordered cefTRIAXone 250 mg, Route: IM, Drug form: PDR/INJ, ONCE, Dosing Weight 94.091, kg, Priority: STAT, Start date: 12/28/14 5:07:00, Stop date: 12/28/14 5:07:00 Start Date: 12/28/14 Stop Date: 12/28/14 Status: Completed doxycycline hyclate 100 mg oral tablet 100 mg=1 tab, PO, Q12H, X 10 day, # 20 tab, 0 Refill(s) Start Date: 12/28/14 Stop Date: 01/07/15 Status: Ordered Flagyl 2 gm, Route: PO, ONCE, Dosing Weight 94.091, kg, Priority: STAT, Start date: 03/02 5:07:00, Stop date: 12/28/14 5:07:00 Start Date: 12/28/14 Stop Date: 12/28/14 Status: Completed ketOROLAC 30 mg, Route: IVP, Drug form: INJ, ONCE, Dosing Weight 94.091, kg, Priority: STA T, Start date: 12/28/14 3:51:00, Stop date: 12/28/14 3:51:00 Start Date: 12/28/14 Stop Date: 12/28/14 Status: Completed naproxen 500 mg oral enteric coated delayed-release tablet 500 mg=1 tab, PO, BID, PRN Pain, # 30 tab, 0 Refill(s) Start Date: 12/28/14 Stop Date: 01/12/15 Status: Ordered [place] 5/325 oral tablet 2 tab, Route: PO, Drug Form: TAB, Dosing Weight 94.091, kg, ONCE, STAT, Start da te: 12/28/14 3:51:00, Stop date: 12/28/14 3:51:00 Start Date: 12/28/14 Stop Date: 12/28/14 Status: Completed Results ELECTROLYTES Most recent to 1 2 oldest [Reference Range]: Sodium Lvl [135-145 135 mEq/L mEq/L] (12/28/14 3:16 AM) Potassium Lvl 3.9 mEq/L [3.5-5.1 mEq/L] (12/28/14 3:16 AM) Chloride Lvl [95-109 104 mEq/L mEq/L] (12/28/14 3:16 AM) CO2 [24-32 mEq/L] 27 mEq/L (12/28/14 3:16 AM) AGAP [10.0-20.0 7.9 mEq/L mEq/L] *LOW* (12/28/14 3:16 AM) CHEM PANEL Most recent to 1 2 oldest [Reference Range]: Creatinine Lvl 1.0 mg/dL [0.5-1.4 mg/dL] (12/28/14 3:16 AM) eGFR 80 mL/min/1.73m2 1 *NA* (12/28/14 3:16 AM) BUN [7-22 mg/dL] 16 mg/dL (12/28/14 3:16 AM) B/C Ratio [6-25] 16 (12/28/14 3:16 AM) Glucose Lvl [70-99 102 mg/dL mg/dL] *HI* (12/28/14 3:16 AM) Total Protein 7.6 g/dL [6.4-8.4 g/dL] (12/28/14 3:16 AM) Albumin Lvl [3.5-5.0 3.5 g/dL g/dL] (12/28/14 3:16 AM) Globulin [2.0-4.0 4.1 g/dL g/dL] *HI* (12/28/14 3:16 AM) A/G Ratio [0.7-1.6] 0.9 (12/28/14 3:16 AM) Calcium Lvl 8.5 mg/dL [8.5-10.5 mg/dL] (12/28/14 3:16 AM) ALT [0-65 unit/L] 28 unit/L (12/28/14 3:16 AM) AST [0-37 unit/L] 18 unit/L (12/28/14 3:16 AM) Alk Phos [39-136 61 unit/L unit/L] (12/28/14 3:16 AM) Bili Total [0.2-1.3 0.3 mg/dL mg/dL] (12/28/14 3:16 AM) 1Result Comment: The eGFR is calculated using [...] be mul tiplied by the estimated BMI. URINE CHEM Most recent to 1 2 oldest [Reference Range]: U Preg [Negative] Negative (12/28/14 2:06 AM) URINE AND STOOL Most recent to 1 2 oldest [Reference Range]: UA Turbidity [Clear] Marked *ABN* (12/28/14 2:06 AM) UA Color Ltyellow *NA* (12/28/14 2:06 AM) UA pH [5.0-8.0] 5.0 (12/28/14 2:06 AM) UA Spec Grav 1.015 [<=1.030] (12/28/14 2:06 AM) UA Glucose [Negative Negative mg/dL mg/dL] *NA* (12/28/14 2:06 AM) UA Blood [Negative] Negative (12/28/14 2:06 AM) UA Ketones [Negative Negative mg/dL mg/dL] *NA* (12/28/14 2:06 AM) UA Protein [Negative Negative mg/dL mg/dL] (12/28/14 2:06 AM) UA Urobilinogen <=1.0 mg/dL [0.1-1.0 mg/dL] *NA* (12/28/14 2:06 AM) UA Bili [Negative] Negative *NA* (12/28/14 2:06 AM) UA Leuk Est Negative [Negative] (12/28/14 2:06 AM) UA Nitrite Negative [Negative] (12/28/14 2:06 AM) UA WBC [0-5 /HPF] 10 /HPF *HI* (12/28/14 2:06 AM) UA RBC [0-2 /HPF] 3 /HPF *HI* (12/28/14 2:06 AM) UA Bacteria [None Moderate /HPF Seen /HPF] *ABN* (12/28/14 2:06 AM) UA Sq Epi [Few /LPF] Occasional /LPF *NA* (12/28/14 2:06 AM) HEMATOLOGY Most recent to 1 2 oldest [Reference Range]: WBC [3.7-10.4 K/CMM] 7.7 K/CMM (12/28/14 3:16 AM) RBC [4.20-5.40 4.78 M/CMM M/CMM] (12/28/14 3:16 AM) Hgb [12.0-16.0 g/dL] 13.2 g/dL (12/28/14 3:16 AM) Hct [36.0-48.0 %] 41.3 % (12/28/14 3:16 AM) MCV [80.0-98.0 fL] 86.5 fL (12/28/14 3:16 AM) MCH [27.0-31.0 pg] 27.7 pg (12/28/14 3:16 AM) MCHC [32.0-36.0 32.0 g/dL g/dL] (12/28/14 3:16 AM) RDW [11.5-14.5 %] 13.0 % (12/28/14 3:16 AM) Platelet [133-450 266 K/CMM K/CMM] (12/28/14 3:16 AM) MPV [7.4-10.4 fL] 8.3 fL (12/28/14 3:16 AM) Segs [45.0-75.0 %] 49.0 % (12/28/14 3:16 AM) Lymphocytes 40.1 % [20.0-40.0 %] *HI* (12/28/14 3:16 AM) Monocytes [2.0-12.0 6.1 % %] (12/28/14 3:16 AM) Eosinophils [0.0-4.0 3.3 % %] (12/28/14 3:16 AM) Basophils [0.0-1.0 1.5 % %] *HI* (12/28/14 3:16 AM) Segs-Bands # 3.8 K/CMM [1.5-8.1 K/CMM] (12/28/14 3:16 AM) Lymphocytes # 3.1 K/CMM [1.0-5.5 K/CMM] (12/28/14 3:16 AM) Monocytes # [0.0-0.8 0.5 K/CMM K/CMM] (12/28/14 3:16 AM) Eosinophils # 0.3 K/CMM [0.0-0.5 K/CMM] (12/28/14 3:16 AM) Basophils # [0.0-0.2 0.1 K/CMM K/CMM] (12/28/14 3:16 AM) MOLECULAR DIAGNOSTIC Most recent to 1 2 oldest [Reference Range]: Source APTIMA Endocervix Endocervix *NA* *NA* (12/28/14 5:45 AM) (12/28/14 5:45 AM) N gonorrhea by Amp Negative Det ([facility]) *NA* [Negative] (12/28/14 5:45 AM) C trachomatis by Amp Negative Det ([facility]) *NA* [Negative] (12/28/14 5:45 AM) Immunizations No data available for this section Procedures Procedure Date Related Diagnosis Body Site Knee joint operation Partial hysterectomy Social History Social History Type Response Smoking Status Never smoker; Exposure to Tobacco Smoke None; Cigarette Smoking Last 365 Days No; Reg Smoking Cessation Counseling No Assessment and Plan No data available for this section
--- NOTE | 2018-06-14 13:31 | Pre Op History & Physical ---
HISTORY OF PRESENT ILLNESS: She is a 48-year-old who came in with vaginal bleeding that has been going on for the last 2 years. She has a history of subtotal hysterectomy 10 years ago for endometriosis. Colposcopy was unsatisfactory and the biopsy showed no abnormality and decision was made to carry on with cone biopsy. This will be performed in the near future. PAST MEDICAL HISTORY: Not significant. PAST SURGICAL HISTORY: Not significant. ALLERGIES: NO KNOWN DRUG ALLERGIES. MEDICATIONS: She is on vitamins. SOCIAL HISTORY: She denies smoking, alcohol or drug abuse. PHYSICAL EXAMINATION: VITAL SIGNS: Stable. CHEST: Clear to auscultation. CARDIOVASCULAR: Regular rate. ABDOMEN: Soft, nontender. ASSESSMENT AND PLAN: A 48-year-old with unsatisfactory colposcopy and abnormal uterine bleeding for cone biopsy. Risks, benefits, and complications were all explained. Danisha Lyon MD [id number] /[id number]
--- NOTE | 2018-06-14 14:02 | Operative Report ---
DATE OF PROCEDURE: 06/14/2018 SURGEON: Danisha Lyon MD PREOPERATIVE DIAGNOSIS: Unsatisfactory colposcopy. POSTOPERATIVE DIAGNOSIS: Unsatisfactory colposcopy. PROCEDURE: Cone biopsy. COMPLICATIONS: None. ESTIMATED BLOOD LOSS: Minimal. PROCEDURE IN DETAIL: The patient was taken to the OR. General anesthesia was induced. She was prepped and draped in a sterile fashion, placed in dorsal lithotomy position. Bladder catheter was used to enter the bladder. Wide speculum was placed inside the vagina. Stay suture of Vicryl 0 at 3 and 9 o'clock was placed. Lugol's iodine was placed on the cervix. No Schiller's test positive area was noted. Cone biopsy was performed using scalpel uneventfully. The cervix base was cauterized with Bovie and the hemostasis was found to be adequate. Marcaine with epinephrine was injected earlier into the substance of the cervix. Surgicel was applied and 2 stay sutures were tied together on the Surgicel side cone biopsy bed. The patient tolerated the procedure well. Lap, instrument, and needle count was correct x2 at the end of the procedure. Danisha Lyon MD [id number] /[id number]
[2018-06-14 14:05] VITALS: BP 131/90
== END | disposition home or self-care (01) ==
LOC: OR 09:10
PROVIDERS: ATTEND Obstetrics & Gynecology
DX: N87.9 Dysplasia of cervix uteri, unspecified (principal); G40.909 Epilepsy, unspecified, not intractable, without status epilepticus; K21.9 Gastro-esophageal reflux disease without esophagitis; K58.9 Irritable bowel syndrome, unspecified; E78.5 Hyperlipidemia, unspecified; F31.9 Bipolar disorder, unspecified; Z01.812 Encounter for preprocedural laboratory examination; Z95.0 Presence of cardiac pacemaker
CPT/HCPCS: 36415; 57520; 80048; 84702; 85025; 88307; J1100; J2001; J2250; J2405; J2704; J2765; 88305